=== PATIENT | female | born 1990 ===

== ENCOUNTER 2016-11-30 15:47 | Emergency (ER) | payer BC, MEDICAID, OTHER ==
[2016-11-30 16:05] VITALS: BP 133/82; PULSE 93; RESP 20; TEMP 98.8; O2SAT 100
[2016-11-30] MEDS ORDERED: Sodium Chloride 0.9% 1,000 ML IV STA (16:52)
[2016-11-30 17:11] LABS: BASO # 0.1 K/uL (0.0-0.2); EOS # 0.1 K/uL (0.0-0.7); EOS % 1.1 % (0.0-4.0); HEMATOCRIT 36.8 % (34.0-47.0); LYMPH # 1.7 K/uL (1.0-4.3); LYMPH % 24.2 % (20.0-40.0); MEAN CELL VOLUME 84.8 fl (81.0-99.0); MEAN CORPUSCULAR HEMOGLOBIN 28.7 pg (27.0-31.0); MEAN CORPUSCULAR HGB CONC 33.9 g/dL (33.0-37.0); MEAN PLATELET VOLUME 7.4 fl (7.2-11.7); MONO # 0.7 K/uL (0.0-0.8); NEUT # 4.7 K/uL (1.8-7.0); NEUT % 64.7 % (50.0-75.0); NRBC % 0.1 % (0.0-0.0); RED CELL DISTRIBUTION WIDTH 13.4 % (11.5-14.5); WHITE BLOOD COUNT 7.2 K/uL (4.8-10.8)
--- NOTE | 2016-11-30 17:16 | ED PDOC ---
HPI: Abdomen Time Seen by Provider: 11/30/16 16:36 Chief Complaint (Nursing): Back Pain Chief Complaint (Provider): Right flank pain and suprapubic pain History Per: Patient History/Exam Limitations: no limitations Onset/Duration Of Symptoms: Days (x3) Associated Symptoms: Vomiting (x4) Additional Complaint(s): Patient is a 25 year old female with a past medical history of a urinary tract infection, , depression, and substance abuse, presenting to the emergency department for constant right flank pain and suprapubic pain ongoing for 3 days with associated 4 episodes of emesis and chills today. Reports that she was at [facility] three days ago and was diagnosed with a UTI and given Cipro. Although compliant with medication, reports no relief of symptoms. Denies fever, diarrhea, hematuria, dysuria, or current drug use. PCP: Dr. Nicholas Mishra Past Medical History Reviewed: Historical Data, Nursing Documentation, Vital Signs Vital Signs: Last Vital Signs Temp 98.8 F 11/30/16 16:03 Pulse 93 H 11/30/16 16:03 Resp 20 11/30/16 16:03 BP 133/82 11/30/16 16:03 Pulse Ox 100 11/30/16 20:40 - Medical History PMH: Anemia, Anxiety, Bipolar Disorder, Depression, Schizophrenia, Seizures Denies: HTN, Chronic Kidney Disease, Sexually Transmitted Disease Other PMH: Urinary Tract Infection - Surgical History Surgical History: (x1) - Family History Family History: States: Unknown Family Hx - Social History Current smoker - smoking cessation education provided: No Ex-Smoker (has not smoked in the last 12 months): No Alcohol: None Drugs: Cannabis (Marijuana), Other ([place]) - Immunization History Hx Tetanus Toxoid Vaccination: No Hx Influenza Vaccination: No Hx Pneumococcal Vaccination: No - Home Medications Home Medications: Ambulatory Orders Medication Instructions Recorded Ciprofloxacin [Cipro] 1 tab PO BID #10 tab 11/27/16 Ondansetron ODT [Zofran ODT] 1 odt PO BID PRN #6 odt 11/27/16 Phenazopyridine [Pyridium] 100 mg PO Q8 #6 tab 11/27/16 Ondansetron ODT [Zofran ODT] 4 mg PO Q8 PRN #12 odt 11/30/16 Sulfamethoxazole/Trimethoprim 1 tab PO BID #20 tab 11/30/16 [Bactrim DS 800 mg-160 mg] - Allergies Allergies/Adverse Reactions: Allergies Allergy/AdvReac Type Severity Reaction Status Date / Time chocolate flavor Allergy Severe ANAPHYLAXIS Verified 11/30/16 16:02 Iodinated Contrast- Oral and Allergy Severe RASH Verified 11/30/16 16:02 IV Dye [Iodinated Contrast Media - IV Dye] peanut Allergy Severe ANAPHYLAXIS Verified 11/30/16 16:02 iodine Allergy ITCHING Verified 11/30/16 16:02 Review of Systems ROS Statement: Except As Marked, All Systems Reviewed And Found Negative Constitutional: Positive for: Chills. Negative for: Fever Gastrointestinal: Positive for: Vomiting, Abdominal Pain (suprapubic pain). Negative for: Diarrhea Genitourinary Female: Negative for: Dysuria, Hematuria Musculoskeletal: Positive for: Back Pain (right flank pain) Physical Exam - Reviewed Nursing Documentation Reviewed: Yes Vital Signs Reviewed: Yes - Physical Exam Appears: Positive for: Well, Non-toxic, No Acute Distress. Negative for: Uncomfortable Head Exam: Positive for: ATRAUMATIC, NORMAL INSPECTION, NORMOCEPHALIC Skin: Positive for: Normal Color, Warm, Dry Eye Exam: Positive for: Normal appearance, EOMI Neck: Positive for: Normal, Painless ROM, Supple Cardiovascular/Chest: Positive for: Regular Rate, Rhythm. Negative for: Murmur Respiratory: Positive for: Normal Breath Sounds. Negative for: Accessory Muscle Use, Respiratory Distress Gastrointestinal/Abdominal: Positive for: Tenderness (mild suprapubic tenderness ). Negative for: Normal Exam Back: Positive for: R CVA Tenderness. Negative for: Normal Inspection Extremity: Positive for: Normal ROM. Negative for: Pedal Edema Neurologic/Psych: Positive for: Alert, Oriented - Laboratory Results Result Diagrams: 11/30/16 17:00 11/30/16 17:00 - ECG O2 Sat by Pulse Oximetry: 100 (RA) Pulse Ox Interpretation: Normal - Progress Re-evaluation Time: 20:35 Condition: Re-examined, Improved Medical Decision Making Medical Decision Making: Time: 16:51 Initial Impression: Urinary Tract Infection, Renal Colic/Kidney Stones Initial Plan: Abdominal/Pelvis CT Scan w/o PO or IV contrast Labs ED Urine Dipstick ED Urine Tylenol 650 mg PO Toradol 30 mg IVP Normal Saline 1 L Zofran 4 mg IV Blood Culture Urine Culture Reevaluation 16:52 IV Inserted. Patient's condition remains stable. 18:30 A/P CT scan pending. Patient's condition is unchanged. 19:55 A/P CT scan reviewed and findings noted: LOWER THORAX: No infiltrate seen in the lung bases. ABDOMEN: LIVER: No acute abnormality of the liver identified. GALLBLADDER AND BILE DUCTS: No CT evidence of acute cholecystitis. No evidence of significant biliary ductal dilatation. PANCREAS: No CT evidence of acute pancreatitis. SPLEEN: No acute abnormality of the spleen identified. ADRENALS: No acute abnormality of the adrenal glands identified. KIDNEYS AND URETERS: Faint areas of hyperdensity seen in the kidneys bilaterally, at the corticomedullary junction regions, most likely due to artifact from concentrated urine versus faint medullary nephrocalcinosis. No renal stones, hydronephrosis, or hydroureter seen. STOMACH AND BOWEL: Retained stool noted throughout the colon. Bowel is otherwise unremarkable in appearance. No evidence of bowel obstruction. APPENDIX: Normal appendix is not seen, however, there are no significant inflammatory changes visualized in the expected location of the appendix to suggest appendicitis. Recommend clinical correlation. PELVIS: BLADDER: No acute abnormality of the bladder identified. REPRODUCTIVE:No acute abnormality of the reproductive organs is seen. No acute abnormality of the uterus identified. No evidence of large adnexal masses. ABDOMEN and PELVIS: INTRAPERITONEAL SPACE: Small amount of free fluid in the cul-de-sac. This is most likely physiologic in nature. No evidence of free intraperitoneal air. BONES/JOINTS: Mild scoliotic curvature of the spine, convex to the left. No acute fractures or other acute bony abnormality visualized. SOFT TISSUES: No acute abnormality of the visualized soft tissues is seen. VASCULATURE: No evidence of abdominal aortic aneurysm. No evidence of periaortic hemorrhage. LYMPH NODES: No evidence of diffuse lymphadenopathy. IMPRESSION: - No evidence of significant acute process on this unenhanced exam. No definite cause for pain identified. - See above for remaining findings. 20:35 Upon provider reevaluation patient is feeling better, is medically stable, and requires no further treatment in the ED at this time. Patient will be discharged with Rx for Zofran and Bactrim. Counseling was provided and all questions were answered regarding diagnosis and need for follow up with Dr. Mishra and Dr. Howard. There is agreement to discharge plan. Return if symptoms persist or worsen. Clinical Impression: Urinary tract infection and right flank pain Scribe Attestation: Documented by Hoa Babin, acting as a scribe for Anna Mujica MD. Provider Scribe Attestation: All medical record entries made by the Scribe were at my direction and personally dictated by me. I have reviewed the chart and agree that the record accurately reflects my personal performance of the history, physical exam, medical decision making, and the department course for this patient. I have also personally directed, reviewed, and agree with the discharge instructions and disposition. Disposition - Clinical Impression Clinical Impression: UTI (urinary tract infection), Right flank pain - Patient ED Disposition Is Patient to be Admitted: No Doctor Will See Patient In The: Office Counseled Patient/Family Regarding: Studies Performed, Diagnosis, Need For Followup - Disposition Referrals: Nicholas Mishra MD [Staff Provider] - Triston Howard MD [Medical Doctor] - Disposition: Routine/Home Disposition Time: 20:35 Condition: GOOD Additional Instructions: Take your medications as instructed. Follow up with your PCP in 2-3 days. Prescriptions: Ondansetron ODT [Zofran ODT] 4 mg PO Q8 PRN #12 odt PRN Reason: Nausea/Vomiting Sulfamethoxazole/Trimethoprim [Bactrim DS 800 mg-160 mg] 1 tab PO BID #20 tab Instructions: Urinary Tract Infection in Women (DC)
[2016-11-30 17:25] LABS: BLOOD UREA NITROGEN 13 mg/dl (7-17); CALCIUM 9.2 mg/dL (8.4-10.2); CARBON DIOXIDE 23 mmol/L (22-30); CHLORIDE 106 mmol/L (98-107); GFR AFRICAN-AMERICAN > 60; GLUCOSE,RANDOM 90 mg/dL (65-105); POTASSIUM 3.9 MMOL/L (3.6-5.0); SODIUM 140 mmol/l (132-148)
--- NOTE | 2016-11-30 19:53 | CT ---
EXAM: CT Abdomen and Pelvis Without Intravenous Contrast EXAM DATE/TIME: 11/30/2016 4:51 PM CLINICAL HISTORY: 25 years old, female; Pain; Abdominal pain; Additional info: Roght flank pain TECHNIQUE: Axial computed tomography images of the abdomen and pelvis without intravenous contrast. All CT scans at this facility use one or more dose reduction techniques, viz.: automated exposure control; ma/kV adjustment per patient size (including targeted exams where dose is matched to indication; i.e. head); or iterative reconstruction technique. Coronal and sagittal reformatted images were created and reviewed. COMPARISON: No relevant prior studies available. FINDINGS: LOWER THORAX: No infiltrate seen in the lung bases. ABDOMEN: LIVER: No acute abnormality of the liver identified. GALLBLADDER AND BILE DUCTS: No CT evidence of acute cholecystitis. No evidence of significant biliary ductal dilatation. PANCREAS: No CT evidence of acute pancreatitis. SPLEEN: No acute abnormality of the spleen identified. ADRENALS: No acute abnormality of the adrenal glands identified. KIDNEYS AND URETERS: Faint areas of hyperdensity seen in the kidneys bilaterally, at the corticomedullary junction regions, most likely due to artifact from concentrated urine versus faint medullary nephrocalcinosis. No renal stones, hydronephrosis, or hydroureter seen. STOMACH AND BOWEL: Retained stool noted throughout the colon. Bowel is otherwise unremarkable in appearance. No evidence of bowel obstruction. APPENDIX: Normal appendix is not seen, however, there are no significant inflammatory changes visualized in the expected location of the appendix to suggest appendicitis. Recommend clinical correlation. PELVIS: BLADDER: No acute abnormality of the bladder identified. REPRODUCTIVE:No acute abnormality of the reproductive organs is seen. No acute abnormality of the uterus identified. No evidence of large adnexal masses. ABDOMEN and PELVIS: INTRAPERITONEAL SPACE: Small amount of free fluid in the cul-de-sac. This is most likely physiologic in nature. No evidence of free intraperitoneal air. BONES/JOINTS: Mild scoliotic curvature of the spine, convex to the left. No acute fractures or other acute bony abnormality visualized. SOFT TISSUES: No acute abnormality of the visualized soft tissues is seen. VASCULATURE: No evidence of abdominal aortic aneurysm. No evidence of periaortic hemorrhage. LYMPH NODES: No evidence of diffuse lymphadenopathy. IMPRESSION: - No evidence of significant acute process on this unenhanced exam. No definite cause for pain identified. - See above for remaining findings.
[2016-11-30] MEDS ORDERED: cefTRIAXone (Rocephin) 1 gm Inj ONE (20:52)
== END 2016-11-30 21:21 | disposition home or self-care (01) ==
LOC: H.ER 15:47
DX: N39.0 Urinary tract infection, site not specified (principal); F20.9 Schizophrenia, unspecified; F31.9 Bipolar disorder, unspecified; F41.9 Anxiety disorder, unspecified
CPT/HCPCS: 74176; 80048; 81025; 85025; 87040; 87086; 96365; 96375; 99284; J0696; J1885; J2405; J7040

== ENCOUNTER 2017-05-24 14:52 | Emergency (ER) | payer BC, MEDICAID ==
[2017-05-24] MEDS ORDERED: Sodium Chloride 0.9% 1,000 ML IV STA (15:50)
[2017-05-24] MEDS ORDERED: Dextrose 5%/Lactated Ringer's 1,000 ML IV SCH (16:00)
[2017-05-24 16:15] LABS: BASO % 0.6 % (0.0-2.0); EOS % 0.2 % (0.0-4.0); HEMOGLOBIN 13.4 g/dL (12.0-16.0); LYMPH # 0.5 K/uL (1.0-4.3); LYMPH % 8.6 % (20.0-40.0); MEAN CELL VOLUME 85.1 fl (81.0-99.0); MEAN CORPUSCULAR HEMOGLOBIN 28.9 pg (27.0-31.0); MEAN CORPUSCULAR HGB CONC 33.9 g/dL (33.0-37.0); MEAN PLATELET VOLUME 7.7 fl (7.2-11.7); MONO # 0.7 K/uL (0.0-0.8); MONO % 12.2 % (0.0-10.0); NEUT # 4.7 K/uL (1.8-7.0); NEUT % 78.4 % (50.0-75.0); NRBC % 0.2 % (0.0-0.0); PLATELET COUNT 203 K/uL (130-400); RBC 4.64 Mil/uL (3.80-5.20); RED CELL DISTRIBUTION WIDTH 13.7 % (11.5-14.5)
--- NOTE | 2017-05-24 16:15 | ED PDOC ---
Syncope/Near Syncope/Dizziness Time Seen by Provider: 05/24/17 15:34 Chief Complaint (Nursing): Syncope Chief Complaint (Provider): Syncope History Per: Patient History/Exam Limitations: no limitations Onset/Duration Of Symptoms: Days (x1) Additional Complaint(s): 26 year old female with a past medical history of bipolar disorder reports to the emergency room complaining of a syncopal episode occurring prior to arrival upon leaving the doctors office. Patient states that upon leaving, she felt light headed and blacked out for less than a minute. Denies any tongue biting, urine incontinence, or compulsive activity. Also felt as though she was going to black out earlier today, but did not. Patient has had syncopal episodes in the past. After workup with a neurologist, no cause found for syncope, and was at the time. Also reports abdominal pain, loss of appetite, and nausea since Friday worsening since onset. PMD: Dr. Bell Escoto Past Medical History Reviewed: Historical Data, Nursing Documentation, Vital Signs Vital Signs: Last Vital Signs Temp 98.1 F 05/24/17 14:54 Pulse 91 H 05/24/17 14:54 Resp 16 05/24/17 14:54 BP 122/86 05/24/17 14:54 Pulse Ox 100 05/24/17 14:54 - Medical History PMH: Anemia, Anxiety, Bipolar Disorder, Depression, Schizophrenia, Seizures Denies: HTN, Chronic Kidney Disease, Sexually Transmitted Disease - Surgical History Surgical History: (x1) - Family History Family History: States: Unknown Family Hx - Social History Current smoker - smoking cessation education provided: No Alcohol: Occasional Drugs: Cannabis (Regularly) - Immunization History Hx Tetanus Toxoid Vaccination: No Hx Influenza Vaccination: No Hx Pneumococcal Vaccination: No - Home Medications Home Medications: Ambulatory Orders Medication Instructions Recorded Ciprofloxacin [Cipro] 1 tab PO BID #10 tab 11/27/16 Ondansetron ODT [Zofran ODT] 1 odt PO BID PRN #6 odt 11/27/16 Phenazopyridine [Pyridium] 100 mg PO Q8 #6 tab 11/27/16 Ondansetron ODT [Zofran ODT] 4 mg PO Q8 PRN #12 odt 11/30/16 Sulfamethoxazole/Trimethoprim 1 tab PO BID #20 tab 11/30/16 [Bactrim DS 800 mg-160 mg] Dicyclomine [Bentyl] 20 mg PO BID PRN #30 tab 05/24/17 - Allergies Allergies/Adverse Reactions: Allergies Allergy/AdvReac Type Severity Reaction Status Date / Time chocolate flavor Allergy Severe ANAPHYLAXIS Verified 05/24/17 14:54 Iodinated Contrast- Oral and Allergy Severe RASH Verified 05/24/17 14:54 IV Dye [Iodinated Contrast Media - IV Dye] peanut Allergy Severe ANAPHYLAXIS Verified 05/24/17 14:54 iodine Allergy ITCHING Verified 05/24/17 14:54 Review of Systems ROS Statement: Except As Marked, All Systems Reviewed And Found Negative Constitutional: Positive for: Other (Muscles aches to the neck and right thigh) . Negative for: Fever ENT: Negative for: Nose Discharge (rhinorrhea) Cardiovascular: Negative for: Chest Pain Respiratory: Negative for: Cough, Shortness of Breath Gastrointestinal: Positive for: Nausea, Abdominal Pain (constant bilateral upper abdominal pain, suprapubic). Negative for: Vomiting, Diarrhea, Constipation Neurological: Positive for: Headache, Other (Syncope) Physical Exam - Reviewed Nursing Documentation Reviewed: Yes Vital Signs Reviewed: Yes - Physical Exam Appears: Positive for: Non-toxic, No Acute Distress Head Exam: Positive for: ATRAUMATIC, NORMOCEPHALIC Skin: Positive for: Warm, Dry Eye Exam: Positive for: EOMI, PERRL ENT: Negative for: Pharyngeal Erythema, Tonsillar Exudate Neck: Positive for: Painless ROM, Supple Cardiovascular/Chest: Positive for: Regular Rate, Rhythm, Chest Non Tender. Negative for: Murmur Respiratory: Positive for: Normal Breath Sounds. Negative for: Wheezing Gastrointestinal/Abdominal: Positive for: Soft, Tenderness (diffuse mild). Negative for: Mass, Distended, Guarding, Rebound Back: Positive for: Normal Inspection. Negative for: Decreased ROM Extremity: Positive for: Normal ROM. Negative for: Deformity Lymphatic: Negative for: Adenopathy Neurologic/Psych: Positive for: Alert. Negative for: Motor/Sensory Deficits - Laboratory Results Result Diagrams: 05/24/17 16:10 05/24/17 16:10 - ECG O2 Sat by Pulse Oximetry: 100 (RA) Pulse Ox Interpretation: Normal Medical Decision Making Medical Decision Making: Initial Impression: Syncope and abdominal pain Time: 15:45 Initial Plan: --Type and Screen --EKG --CMP --Drug Screen Urine --Lipase --Magnesium --Phosphorous --ED Urine Test --ED Urine Dipstick --EKG-ED --CBC with Differential --Dextrose 5% Lactated Ringers 1000 mL IV 100 mls/hr --Sodium Chloride 0.9% 1000 mL IV 1000 mls/hr --Zofran Inj 4mg IVP once one --IV Insertion --US of Abdomen Differential Includes but is not Limited To: Dehydration, electrolyte abnormality, pancreatitis, pyelonephritis, UTI, vasovagal syncope. Accession No. : [id number] Patient Name / ID : [id number] [id number] / [id number] Exam Date : 05/24/2017 16:18:23 ( Approved ) Study Comment : Sex / Age : F / 26Y Creator : Wayne Fish MD Dictator : Wayne Fish MD Professor Of Music : Utility Bagger : Wayne Fish MD Approver2 : Report Date : 05/24/2017 17:09:29 My Comment : HISTORY: abdominal pain room COMPARISON: None. TECHNIQUE: Sonographic evaluation of the abdomen. FINDINGS: LIVER: Measures 17.0 cm. Patent portal vein. Portal venous flow: Hepatopetal. Unremarkeable echogenicity of the liver parenchyma. No mass. No intrahepatic bile duct dilatation. GALLBLADDER: Unremarkable. No gallstones. COMMON BILE DUCT: Measures 2.3 mm. No stones. No dilatation. PANCREAS: Unremarkable as visualized. No mass. No ductal dilatation. RIGHT KIDNEY: Measures 5.5 x 13.7cm. Normal echogenicity. No calculus, mass, or hydronephrosis. LEFT KIDNEY: Measures 5.5 x 13cm. Normal echogenicity. No calculus, mass, or hydronephrosis. SPLEEN: Normal in size and contour. No mass. AORTA: No aneurysmal dilatation. IVC: Unremarkable. OTHER FINDINGS: None. IMPRESSION: No significant or acute findings to account for/ related to the clinical presentation. Labs unremarkable. DW pt findings and plan of care. Scribe Attestation: Documented by Lubna Purdy, acting as a scribe for Heidi Kaye MD Provider Scribe Attestation: All medical record entries made by the Scribe were at my direction and personally dictated by me. I have reviewed the chart and agree that the record accurately reflects my personal performance of the history, physical exam, medical decision making, and the department course for this patient. I have also personally directed, reviewed, and agree with the discharge instructions and disposition. Disposition - Clinical Impression Clinical Impression: Syncope, Abdominal pain - Disposition Referrals: Nicholas Escoto MD [Family Provider] - (FOLLOW UP WITH DR ESCOTO NEXT WEEK FOR REFERRAL TO GASTROENTROLOGIST FOR FURTHER EVALUATION) Disposition: Routine/Home Disposition Time: 18:28 Condition: STABLE Prescriptions: Dicyclomine [Bentyl] 20 mg PO BID PRN #30 tab PRN Reason: abdominal pain Instructions: Abdominal Pain (ED)
[2017-05-24 16:32] LABS: BARBITURATES, UR NEGATIVE (NEGATIVE); BENZODIAZEPINES, UR NEGATIVE (NEGATIVE); OPIATES, UR NEGATIVE (NEGATIVE); PHENCYCLIDINE, UR NEGATIVE (NEGATIVE)
[2017-05-24 16:56] LABS: ALB/GLOB RATIO 1.4 (1.0-2.1); ALBUMIN 4.5 g/dL (3.5-5.0); ALT/SGPT 20 U/L (9-52); AST/SGOT 14 U/L (14-36); BLOOD UREA NITROGEN 9 mg/dl (7-17); CALCIUM 9.4 mg/dL (8.4-10.2); GFR AFRICAN-AMERICAN > 60; GFR NON-AFRICAN AMERICAN > 60; LIPASE 61 U/L (23-300); MAGNESIUM 1.9 MG/DL (1.6-2.3)
--- NOTE | 2017-05-24 17:10 | US ---
HISTORY: abdominal pain room COMPARISON: None. TECHNIQUE: Sonographic evaluation of the abdomen. FINDINGS: LIVER: Measures 17.0 cm. Patent portal vein. Portal venous flow: Hepatopetal. Unremarkeable echogenicity of the liver parenchyma. No mass. No intrahepatic bile duct dilatation. GALLBLADDER: Unremarkable. No gallstones. COMMON BILE DUCT: Measures 2.3 mm. No stones. No dilatation. PANCREAS: Unremarkable as visualized. No mass. No ductal dilatation. RIGHT KIDNEY: Measures 5.5 x 13.7cm. Normal echogenicity. No calculus, mass, or hydronephrosis. LEFT KIDNEY: Measures 5.5 x 13cm. Normal echogenicity. No calculus, mass, or hydronephrosis. SPLEEN: Normal in size and contour. No mass. AORTA: No aneurysmal dilatation. IVC: Unremarkable. OTHER FINDINGS: None. IMPRESSION: No significant or acute findings to account for/ related to the clinical presentation.
[2017-05-24 17:37] LABS: BANDS 2 % (0-2); LYMPHOCYTE 8 % (20-50); MONOCYTE 10 % (0-10); NEUTROPHIL 80 % (42-75); TOTAL CELLS COUNTED 100
[2017-05-24 17:38] LABS: PLATELET ESTIMATE NORMAL (NORMAL)
[2017-05-24 19:22] VITALS: BP 128/70; PULSE 72; RESP 18; TEMP 98.4; O2SAT 99
--- NOTE | 2017-05-25 10:49 | CARD ---
APPROVED REPORT EKG Measurement Heart [id number] <Conclusion> Normal sinus rhythm with sinus arrhythmia Normal ECG
== END 2017-05-24 19:22 | disposition home or self-care (01) ==
LOC: H.ER 14:52
DX: R55 Syncope and collapse (principal); R10.9 Unspecified abdominal pain; E86.0 Dehydration; F20.9 Schizophrenia, unspecified; F31.9 Bipolar disorder, unspecified; F41.9 Anxiety disorder, unspecified
CPT/HCPCS: 76700; 80053; 81025; 82948; 83690; 83735; 84100; 85025; 86850; 86900; 93005; 96374; 99284; G0480; J2405; J7040; J7120

== ENCOUNTER 2018-01-19 21:31 | Emergency (ER) | payer BC, MEDICAID ==
[2018-01-19 22:06] VITALS: RESP 18
--- NOTE | 2018-01-19 22:54 | ED PDOC ---
HPI: Abdomen Time Seen by Provider: 01/19/18 22:16 Chief Complaint (Nursing): Female Genitourinary Chief Complaint (Provider): Female Genitourinary History Per: Patient History/Exam Limitations: no limitations Onset/Duration Of Symptoms: Days (x2) Current Symptoms Are (Timing): Constant Quality Of Discomfort: "Pain" Associated Symptoms: Vomiting. denies: Fever, Chills, Nausea, Diarrhea, Chest Pain, Urinary Symptoms Additional Complaint(s): 27 year old female (A0) presents to the hospital for sharp abdominal pain onset x2 days. Patient reports she was vomiting for a week, but resolved x2 days ago. She denies fever, chest pain, urinary symptoms, diarrhea, or any other medical complaints. Patient states she is anxious and wants to ensure her baby is okay. No further complaints. PMD: Dr. Danica GUAJARDO: Dr. Beatty Past Medical History Reviewed: Historical Data, Nursing Documentation, Vital Signs Vital Signs: Last Vital Signs Temp 98.5 F 01/19/18 22:04 Pulse 84 01/19/18 22:04 Resp 18 01/19/18 22:04 BP 122/90 01/19/18 22:04 Pulse Ox 99 01/19/18 22:04 - Medical History PMH: Anemia, Anxiety, Bipolar Disorder, Depression, Schizophrenia, Seizures Denies: HTN, Chronic Kidney Disease, Sexually Transmitted Disease - Surgical History Surgical History: (x1) - Family History Family History: States: Unknown Family Hx - Social History Current smoker - smoking cessation education provided: No Ex-Smoker (has not smoked in the last 12 months): No Alcohol: None Drugs: Denies - Immunization History Hx Tetanus Toxoid Vaccination: No Hx Influenza Vaccination: No Hx Pneumococcal Vaccination: No - Home Medications Home Medications: Ambulatory Orders Medication Instructions Recorded Ciprofloxacin [Cipro] 1 tab PO BID #10 tab 11/27/16 Ondansetron ODT [Zofran ODT] 1 odt PO BID PRN #6 odt 11/27/16 Phenazopyridine [Pyridium] 100 mg PO Q8 #6 tab 11/27/16 Ondansetron ODT [Zofran ODT] 4 mg PO Q8 PRN #12 odt 11/30/16 Sulfamethoxazole/Trimethoprim 1 tab PO BID #20 tab 11/30/16 [Bactrim DS 800 mg-160 mg] Dicyclomine [Bentyl] 20 mg PO BID PRN #30 tab 05/24/17 - Allergies Allergies/Adverse Reactions: Allergies Allergy/AdvReac Type Severity Reaction Status Date / Time chocolate flavor Allergy Severe ANAPHYLAXIS Verified 05/24/17 14:54 Iodinated Contrast- Oral and Allergy Severe RASH Verified 05/24/17 14:54 IV Dye [Iodinated Contrast Media - IV Dye] peanut Allergy Severe ANAPHYLAXIS Verified 05/24/17 14:54 iodine Allergy ITCHING Verified 05/24/17 14:54 Review of Systems ROS Statement: Except As Marked, All Systems Reviewed And Found Negative Gastrointestinal: Positive for: Vomiting, Abdominal Pain Physical Exam - Reviewed Nursing Documentation Reviewed: Yes Vital Signs Reviewed: Yes - Physical Exam Appears: Positive for: Non-toxic, No Acute Distress Skin: Positive for: Normal Color, Warm, Dry Eye Exam: Positive for: Normal appearance Cardiovascular/Chest: Positive for: Regular Rate, Rhythm. Negative for: Murmur Respiratory: Positive for: Normal Breath Sounds. Negative for: Respiratory Distress Gastrointestinal/Abdominal: Positive for: Normal Exam, Soft. Negative for: Tenderness Back: Positive for: Normal Inspection Extremity: Positive for: Normal ROM. Negative for: Pedal Edema, Deformity Neurologic/Psych: Positive for: Alert, Oriented (x3) - Laboratory Results Result Diagrams: 01/19/18 23:00 01/19/18 23:00 - ECG O2 Sat by Pulse Oximetry: 99 (RA) Pulse Ox Interpretation: Normal Medical Decision Making Medical Decision Making: Time: 2236 Initial Plan: --Beta HCG --CMP --CBC with differentials --Urine C&C --Urinalysis --US OB Time: 22:39 Transvaginal US IMPRESSION: Single, live intrauterine gestation. Positive cardiac activity Small bowel loops are noted in the pelvic area Time: 3:27 - discharged home, follow up with Dr. Beatty on Friday Scribe Attestation: Documented by Abi Gaxiola, acting as a scribe for Matt Quispe MD Provider Scribe Attestation: All medical record entries made by the Scribe were at my direction and personally dictated by me. I have reviewed the chart and agree that the record accurately reflects my personal performance of the history, physical exam, medical decision making, and the department course for this patient. I have also personally directed, reviewed, and agree with the discharge instructions and di sposition. Disposition - Clinical Impression Clinical Impression: - Disposition Referrals: [facility] [Outside] Disposition: Routine/Home Disposition Time: 03:27 Condition: IMPROVED Additional Instructions: follow up with your primary doctor/post production assistant Dr Beatty on friday return to the ED with any worsening or concerning symptoms Instructions: Symptoms Forms: [employer] ([place])
[2018-01-19 23:55] LABS: BASO # 0.1 K/uL (0.0-0.2); BASO % 0.5 % (0.0-2.0); EOS # 0.1 K/uL (0.0-0.7); EOS % 1.1 % (0.0-4.0); HEMOGLOBIN 12.8 g/dL (12.0-16.0); LYMPH # 2.5 K/uL (1.0-4.3); LYMPH % 24.9 % (20.0-40.0); MEAN CELL VOLUME 84.7 fl (81.0-99.0); MEAN CORPUSCULAR HEMOGLOBIN 28.9 pg (27.0-31.0); MEAN CORPUSCULAR HGB CONC 34.1 g/dL (33.0-37.0); MEAN PLATELET VOLUME 7.9 fl (7.2-11.7); MONO # 0.9 K/uL (0.0-0.8); MONO % 9.3 % (0.0-10.0); NEUT # 6.5 K/uL (1.8-7.0); NEUT % 64.2 % (50.0-75.0); RBC 4.44 Mil/uL (3.80-5.20); WHITE BLOOD COUNT 10.1 K/uL (4.8-10.8)
[2018-01-19 23:56] LABS: SQUAMOUS EPITHIAL 1 /hpf (0-5); URINE BACTERIA RARE (<OCC); URINE BILIRUBIN NEGATIVE (NEGATIVE); URINE BLOOD NEGATIVE (NEGATIVE); URINE CLARITY CLEAR (Clear); URINE COLOR YELLOW (YELLOW); URINE GLUCOSE (UA) NEG (Normal); URINE LEUKOCYTE ESTERASE NEG Leu/uL (Negative); URINE PROTEIN NEGATIVE (NEGATIVE); URINE UROBILINOGEN 0.2-1.0 mg/dL (0.2-1.0)
[2018-01-20 00:23] LABS: ALB/GLOB RATIO 1.5 (1.0-2.1); ALBUMIN 4.5 g/dL (3.5-5.0); ALT/SGPT 24 U/L (9-52); AST/SGOT 18 U/L (14-36); BLOOD UREA NITROGEN 9 mg/dl (7-17); CALCIUM 9.7 mg/dL (8.4-10.2); GFR NON-AFRICAN AMERICAN > 60
[2018-01-20 04:03] VITALS: BP 122/62; PULSE 73; TEMP 97.9; O2SAT 98
--- NOTE | 2018-01-20 12:07 | US ---
Date of service: 01/19/2018 PROCEDURE: First trimester ultrasound HISTORY: Pelvic pain COMPARISON: None TECHNIQUE: Standard protocol for this study/examination. FINDINGS: LMP: Unknown Prior examinations from the current : None. TECHNIQUE: Real-time 2D imaging, duplex and color Doppler. FINDINGS: Cardiac activity: Present Rate: 138 BPM Measurements: [place] rump length: 0.58 cm Gestational age based on CRL 6 weeks 3 days Gestational age 7 weeks 1 day based on gestational sac measurement 2.45 cm Gestational age derived from LMP: Cannot be ascertained based in the absence of a reliable/ known LMP DIMITRI based on LMP: Cannot be ascertained based in the absence of a reliable/ known LMP DIMITRI based on biometry: 6 weeks 6 days Gestational concordance cannot be determined Yolk sac identified Cervix: No Cervical abnormalities: Negative examination for cervical dilatation or effacement. Closed cervix measuring 3.11 cm Subchorionic hemorrhage: None UTERUS: 5.6 x 6.3 x 7.7 cm. ADNEXA: Right: 1 x 2.3 x 2.2 cm. Normal Doppler arterial waveform documented. Left: 1.7 x 2.6 x 2.8 cm. Normal Doppler arterial waveform documented Fluid in the cul-de-sac: None IMPRESSION: Six weeks 6 days live intrauterine gestation. Absence of reliable LMP precludes assessment of concordance. Concordant results (preliminary interpretation) provided by [facility]. Procedure Completed: 23:39. Preliminary Report: Dictated and Authenticated: 00:07. Final Interpretation: 12:04. January 20, 2018
== END 2018-01-20 03:33 | disposition home or self-care (01) ==
LOC: H.ER 21:31
DX: O21.9 Vomiting of pregnancy, unspecified (principal); F31.9 Bipolar disorder, unspecified

== ENCOUNTER 2018-05-28 23:06 | Emergency (ER) | payer BC, MEDICAID ==
[2018-05-28 23:21] VITALS: TEMP 98.1; O2SAT 99
[2018-05-29] MEDS ORDERED: Amoxicillin-Clav 875-125 mg Tab PO STA (01:24)
--- NOTE | 2018-05-29 01:28 | ED PDOC ---
HPI: Skin/Bite Injury Time Seen by Provider: 05/29/18 01:18 Chief Complaint (Nursing): Bite Chief Complaint (Provider): dog bite History Per: Patient History/Exam Limitations: no limitations Onset/Duration Of Symptoms: Days (2) Current Symptoms Are (Timing): Still Present Quality Of Symptoms: Painful Additional Complaint(s): 27 y/o female, approximately 25 weeks gestation, presents for evaluation of dog bite to left hand sustained 2 days ago. Patient states she was pet-sitting a husky and he took a slice of pizza off the table and when she went to grab it from his mouth he bit her. Patient states dog baker bench reports dog has all vaccines. Patient has been cleaning hand with peroxide but reports pain and swelling to bite sites. Denies fever, drainage from bite sites, numbness/weakness left upper extremity. Vaccines up to date Past Medical History Reviewed: Historical Data, Nursing Documentation, Vital Signs Vital Signs: Last Vital Signs Temp 98.1 F 05/28/18 23:20 Pulse 84 05/28/18 23:20 Resp 16 05/28/18 23:20 BP 112/72 05/28/18 23:20 Pulse Ox 99 05/28/18 23:20 - Medical History PMH: Anemia, Anxiety, Bipolar Disorder, Depression, Schizophrenia, Seizures Denies: HTN, Chronic Kidney Disease, Sexually Transmitted Disease - Surgical History Surgical History: (x1) - Family History Family History: States: Unknown Family Hx - Immunization History Hx Tetanus Toxoid Vaccination: No Hx Influenza Vaccination: No Hx Pneumococcal Vaccination: No - Home Medications Home Medications: Ambulatory Orders Medication Instructions Recorded Ciprofloxacin [Cipro] 1 tab PO BID #10 tab 11/27/16 Ondansetron ODT [Zofran ODT] 1 odt PO BID PRN #6 odt 11/27/16 Phenazopyridine [Pyridium] 100 mg PO Q8 #6 tab 11/27/16 Ondansetron ODT [Zofran ODT] 4 mg PO Q8 PRN #12 odt 11/30/16 Sulfamethoxazole/Trimethoprim 1 tab PO BID #20 tab 11/30/16 [Bactrim DS 800 mg-160 mg] Dicyclomine [Bentyl] 20 mg PO BID PRN #30 tab 05/24/17 Amoxicillin/Clavulanate [Augmentin 1 tab PO Q12 #13 tab 05/29/18 875 MG-125 MG] Bacitracin Ointment [Bacitracin] 1 applic TOP BID #1 tube 05/29/18 - Allergies Allergies/Adverse Reactions: Allergies Allergy/AdvReac Type Severity Reaction Status Date / Time chocolate flavor Allergy Severe ANAPHYLAXIS Verified 05/24/17 14:54 Iodinated Contrast- Oral and Allergy Severe RASH Verified 05/24/17 14:54 IV Dye [Iodinated Contrast Media - IV Dye] peanut Allergy Severe ANAPHYLAXIS Verified 05/24/17 14:54 iodine Allergy ITCHING Verified 05/24/17 14:54 Review of Systems ROS Statement: Except As Marked, All Systems Reviewed And Found Negative Musculoskeletal: Positive for: Hand Pain Physical Exam - Reviewed Nursing Documentation Reviewed: Yes Vital Signs Reviewed: Yes - Physical Exam Appears: Positive for: Well, Non-toxic, No Acute Distress Pulses-Radial (L): 2+ Pulses-Radial (R): 2+ Extremity: Positive for: Normal ROM, Other (Puncture wound dorsal left hand overlying mid 3rd metacarpal with + surrounding edema, erythema; no drainage. Smaller puncture wounds noted dorsal left hand base of 2nd digit without edema, erythema, drainage. Puncture wound palmar left hand lateral ascpect with erythema surrounding borders; no drainage, edema. Small puncture wound distal left hand 5th digit without edema, erythema. FROM. Distal NV/motor intact) Neurologic/Psych: Positive for: Alert, Oriented (x3) - ECG O2 Sat by Pulse Oximetry: 99 - Progress ED Course And Treament: Bite wounds irrigated with NS, bacitracin applied, bandaged Patient educated on findings, discharged with rx Augmentin (dose given in ED), Bacitracin Patient educated on wound care and RICE Follow up with PMD within 2-3 days Patient was given strict return precautions including fever, spreading r edness/swelling, drainage from bite sites, or other concerning symptoms Disposition - Clinical Impression Clinical Impression: Dog bite of multiple sites of left hand and fingers - Patient ED Disposition Is Patient to be Admitted: No Counseled Patient/Family Regarding: Diagnosis, Need For Followup, Rx Given - Disposition Disposition: Routine/Home Disposition Time: 02:36 Condition: IMPROVED Additional Instructions: Follow up with your primary doctor within 2-3 days Clean wound daily, apply topical medication and take antibiotics as prescribed Ice affected areas Return to ED for fever, increased redness/swelling to wounds, discharge from wounds, or other concerning symptoms Prescriptions: Amoxicillin/Clavulanate [Augmentin 875 MG-125 MG] 1 tab PO Q12 #13 tab Bacitracin Ointment [Bacitracin] 1 applic TOP BID #1 tube Instructions: Animal and Human Bites Forms: [facility] ([place]ian)
[2018-05-29] MEDS ORDERED: Amoxicillin-Clav 875-125 mg Tab PO ONE (01:33)
[2018-05-29 02:50] VITALS: BP 104/75; PULSE 74; RESP 18
== END 2018-05-29 02:50 | disposition home or self-care (01) ==
LOC: H.ER 23:06
DX: S61.452A Open bite of left hand, initial encounter (principal); W54.0XXA Bitten by dog, initial encounter; Y92.89 Other specified places as the place of occurrence of the external cause; Z3A.25 25 weeks gestation of pregnancy; F20.9 Schizophrenia, unspecified; Z88.8 Allergy status to other drugs, medicaments and biological substances